=== PATIENT | male | born 1955 | race Caucasian/White ===

== ENCOUNTER 2017-07-12 14:16 | Inpatient (IN) | payer BC ==
[~2017-07-12] VITALS: Ht 167.6 cm; Wt 93.9 kg
[2017-07-12 14:54] LABS: HEMATOCRIT 38.3 % (38.0-50.0); MCH 29.3 PG (29.0-34.0); MCHC 33.9 G/DL (30.0-36.0); MCV 86.3 FL (86-99); MEAN PLAT.VOLUME 9.6 uM^3 (9.0-12.4); PLATELET COUNT 204 K/uL (156-360); RBC DIS.WIDTH-SD 40.4 % (39-53); RED BLOOD COUNT 4.44 M/uL (4.00-5.50); WHITE BLOOD COUNT 10.3 K/uL (4.1-10.2)
[2017-07-12 15:01] LABS: PROTHROMBIN TIME 11.2 SEC (10.2-12.9)
[2017-07-12 15:04] LABS: PTT 22.4 SEC (25-37)
[2017-07-12 15:07] LABS: CHLORIDE 108 mEq/L (99-109); POTASSIUM 3.8 mEq/L (3.7-5.4); SODIUM 141 mEq/L (136-147)
[2017-07-12 15:09] LABS: GLUCOSE 130 mg/dL (70-99)
[2017-07-12 15:10] LABS: ANION GAP 12 MEQ/L (2-14)
[2017-07-12 15:11] LABS: TOTAL BILIRUBIN 0.2 mg/dL (0.0-1.0)
[2017-07-12 15:12] LABS: ALKALINE PHOSPHATASE 76 IU/L (3-129)
[2017-07-12 15:13] LABS: GFR ESTIMATE (CALCULATED) > 59 mL/min/
[2017-07-12 15:14] LABS: DIRECT BILIRUBIN 0.1 mg/dL (0.0-0.3); UREA NITROGEN (BUN) 30 mg/dL (9-23)
[2017-07-12 15:16] LABS: LIPASE 22 U/L (1.0-51.0)
[2017-07-12 15:19] LABS: TROP-I INTERPRETATION NEGATIVE; TROPONIN-I < 0.01 ng/mL (0.0-0.30)
[2017-07-12] MEDS ORDERED: FLEXERIL10 MG PO (17:51)
[2017-07-12] MEDS ORDERED: LISINOPRIL20 MG PO (17:51)
[2017-07-12] MEDS ORDERED: ASPIR 8181 M1 PO (17:51)
[2017-07-12] MEDS ORDERED: ARTHROTEC 751 TABLET PO (17:51)
[2017-07-12] MEDS ORDERED: METOPROLOL SUC100 MG PO (17:51)
[2017-07-12] MEDS ORDERED: SUPER MULTIVIT1 EACH PO (17:51)
[2017-07-12] MEDS ORDERED: NORVASC10 MG PO (17:51)
[2017-07-12] MEDS ORDERED: TYLENOL EXTRA500 MG PO (17:52)
[2017-07-12] MEDS ORDERED: ZYRTEC10 M3 PO (17:52)
[2017-07-12 19:52] VITALS: BP 163/73
[2017-07-12 21:32] LABS: POINT-OF-CARE METER ID UU14162513
[2017-07-12 23:37] VITALS: BP 149/68
[2017-07-13 03:51] VITALS: BP 166/82
[2017-07-13 05:18] LABS: HEMATOCRIT 39.5 % (38.0-50.0); MCV 87.2 FL (86-99)
[2017-07-13 07:45] VITALS: BP 180/85
[2017-07-13 10:21] LABS: C DIFF TOXIN NEGATIVE (NEGATIVE); PROBE CHECK PASS; SPECIMEN PROCESSING CONTROL PASS
[2017-07-13 10:54] VITALS: BP 141/82
[2017-07-13 12:03] LABS: POINT-OF-CARE METER ID UU14162513
[2017-07-13 12:07] LABS: INFLUENZA A VIRAL ANTIGEN NEGATIVE; INFLUENZA B VIRAL ANTIGEN NEGATIVE
[2017-07-13 12:08] LABS: HEMATOCRIT 37.4 % (38.0-50.0); MCV 87.8 FL (86-99)
[2017-07-13 16:26] VITALS: BP 139/75
[2017-07-13 17:50] LABS: HEMATOCRIT 38.2 % (38.0-50.0)
[2017-07-13 19:07] LABS: HEMATOCRIT 38.5 % (38.0-50.0); MCH 30.2 PG (29.0-34.0); MCHC 33.8 G/DL (30.0-36.0); MCV 89.3 FL (86-99); MEAN PLAT.VOLUME 10.4 uM^3 (9.0-12.4); PLATELET COUNT 215 K/uL (156-360); RBC DIS.WIDTH-CV 13.5 % (11.8-14.6); RBC DIS.WIDTH-SD 44.2 % (39-53); RED BLOOD COUNT 4.31 M/uL (4.00-5.50); WHITE BLOOD COUNT 16.7 K/uL (4.1-10.2)
[2017-07-13 20:00] VITALS: BP 113/60
[2017-07-13 21:30] LABS: POINT-OF-CARE METER ID UU13113831
[2017-07-14 03:33] VITALS: BP 131/60
[2017-07-14 08:00] VITALS: BP 140/67
[2017-07-14 08:12] LABS: POINT-OF-CARE METER ID UU14162513
[2017-07-14 08:13] LABS: HEMATOCRIT 38.6 % (38.0-50.0); MCH 28.9 PG (29.0-34.0); MCHC 32.4 G/DL (30.0-36.0); MCV 89.4 FL (86-99); MEAN PLAT.VOLUME 9.7 uM^3 (9.0-12.4); PLATELET COUNT 201 K/uL (156-360); RBC DIS.WIDTH-CV 13.5 % (11.8-14.6); RBC DIS.WIDTH-SD 44.1 % (39-53); RED BLOOD COUNT 4.32 M/uL (4.00-5.50); WHITE BLOOD COUNT 17.1 K/uL (4.1-10.2)
[2017-07-14 11:15] VITALS: BP 133/61
[2017-07-14 12:19] LABS: POINT-OF-CARE METER ID UU13113831
[2017-07-14 15:58] VITALS: BP 125/58
[2017-07-14 17:21] LABS: POINT-OF-CARE METER ID UU13113831
[2017-07-14 19:51] VITALS: BP 126/59
[2017-07-14 21:26] LABS: POINT-OF-CARE METER ID UU14162513
[2017-07-14 23:56] VITALS: BP 104/50
[2017-07-15 01:21] LABS: HEMATOCRIT 34.5 % (38.0-50.0); MCH 28.8 PG (29.0-34.0); MCHC 32.2 G/DL (30.0-36.0); MCV 89.6 FL (86-99); MEAN PLAT.VOLUME 9.6 uM^3 (9.0-12.4); PLATELET COUNT 188 K/uL (156-360); RBC DIS.WIDTH-CV 13.4 % (11.8-14.6); RBC DIS.WIDTH-SD 44.2 % (39-53); RED BLOOD COUNT 3.85 M/uL (4.00-5.50); WHITE BLOOD COUNT 12.5 K/uL (4.1-10.2)
[2017-07-15 03:37] VITALS: BP 102/52
[2017-07-15 08:15] VITALS: BP 110/59
[2017-07-15 08:15] LABS: POINT-OF-CARE METER ID UU13113831
[2017-07-15 08:47] LABS: HEMATOCRIT 39.2 % (38.0-50.0); MCH 28.3 PG (29.0-34.0); MCHC 31.6 G/DL (30.0-36.0); MCV 89.5 FL (86-99); MEAN PLAT.VOLUME 9.5 uM^3 (9.0-12.4); PLATELET COUNT 214 K/uL (156-360); RBC DIS.WIDTH-CV 13.3 % (11.8-14.6); RBC DIS.WIDTH-SD 43.6 % (39-53); RED BLOOD COUNT 4.38 M/uL (4.00-5.50); WHITE BLOOD COUNT 9.9 K/uL (4.1-10.2)
[2017-07-15 09:10] LABS: ANION GAP 10 MEQ/L (2-14); CHLORIDE 108 MEQ/L (99-109); GFR ESTIMATE (CALCULATED) > 59 mL/min/; GLUCOSE 129 mg/dL (70-99); MAGNESIUM 1.9 mg/dl (1.3-2.7); POTASSIUM 3.7 MEQ/L (3.7-5.4); SAMPLE HEMOLYSIS CHECK 0; SAMPLE ICTERIC CHECK 0; SAMPLE LIPEMIA CHECK 0; SODIUM 146 MEQ/L (136-147); UREA NITROGEN (BUN) 13 mg/dL (9-23)
[2017-07-15] MEDS ORDERED: CIPRO500 MG PO (10:49)
[2017-07-15] MEDS ORDERED: METRONIDAZOLE500 MG PO (10:49)
[2017-07-15] MEDS ORDERED: BENTYL20 MG PO (10:49)
[2017-07-15 11:26] VITALS: BP 129/64
== END 2017-07-15 14:10 | disposition home or self-care (01) | DRG 392 ==
LOC: EME 14:16 → EDOF 16:49 → 5WEST 16:49 → EDOF 16:49 → ENRESERV 16:51 → 5WEST 19:19 → ENRESERV 07-13 10:42 → CANRESERV 07-13 10:42 → 5WEST 07-15 14:10
PROVIDERS: Emergency Medicine; Hospitalist; Internal Medicine; Nurse Practitioner Adult Health; Physician Assistant Medical; Specialist
DX: A09 Infectious gastroenteritis and colitis, unspecified (principal); K62.5 Hemorrhage of anus and rectum; I10 Essential (primary) hypertension; I25.10 Atherosclerotic heart disease of native coronary artery without angina pectoris; E11.9 Type 2 diabetes mellitus without complications; E66.9 Obesity, unspecified; Z68.33 Body mass index [BMI] 33.0-33.9, adult; Z79.82 Long term (current) use of aspirin; Z82.3 Family history of stroke; Z82.49 Family history of ischemic heart disease and other diseases of the circulatory system
CPT/HCPCS: 71020; 74176; 80048; 80076; 82948; 83690; 83735; 83880; 84484; 85014; 85018; 85027; 85610; 85730; 86850; 86900; 86901; 87040; 87046; 87177; 87493; 87502; 87506; 93005; 99281; 99285; C9113; G0378; J0744; J1815; J2405; J7030; S0028; S0030